=== PATIENT | female | born 1985 | race African-American/Black ===

== ENCOUNTER 2016-11-26 17:42 | Emergency (ER) | payer OTHER ==
[~2016-11-26] VITALS: Ht 170.2 cm; Wt 88.9 kg
== END 2016-11-26 21:17 | disposition home or self-care (01) ==
LOC: ED 17:42
DX: R21 Rash and other nonspecific skin eruption (principal)
CPT/HCPCS: 99282

== ENCOUNTER 2016-12-23 15:34 | Emergency (ER) | payer OTHER ==
[~2016-12-23] VITALS: Ht 170.2 cm; Wt 88.9 kg
== END 2016-12-23 17:56 | disposition home or self-care (01) ==
LOC: ED 15:34
DX: R10.9 Unspecified abdominal pain (principal)
CPT/HCPCS: 81001; 84703; 99283